=== PATIENT | male | born 1970 | race Two or more races ===

== ENCOUNTER 2019-05-12 13:03 | Emergency (ER) | payer SELFPAY ==
[~2019-05-12] VITALS: Ht 172.7 cm; Wt 77.1 kg
--- NOTE | 2019-05-12 13:11 | NUR ---
ED Nurse Note: pt brougth by RA [facility] from [place]. pt slept on other person's property, manager trading called LOKESH. when [employer] handcuff on him, pt c/o cp. LOKESH called 911. pt is not custody. pt appears to be ETOH. unkempt. on surveillance system monitor. will assess neuro after sober. will wait for the further order.
[2019-05-12 13:12] VITALS: BP 107/57
--- NOTE | 2019-05-12 14:45 | NUR ---
Nasir dolan in EDM - 05/12/19 at 1508 by YARIEL ED Nurse Note: PT TAKEN TO CT.
--- NOTE | 2019-05-12 14:45 | NUR ---
ED Nurse Note: PT IS NOW MORE AWAKE. RESPONDS TO QUESTIONS. VSS.
--- NOTE | 2019-05-12 14:45 | Emergency Room Report ---
History of Present Illness General Chief Complaint: Alcohol Intoxication Source: EMS Present Illness HPI This patient is brought in by [place] fire department. He is homeless and know alcoholic. They were called by a business van owner operator because the patient was sleeping on the property. When [place] police department arrived the patient refused to leave and then when he was being arrested he stated that he had chest pain. He has no complaints on my evaluation. He is sleeping and does not want to be bothered. Allergies: Coded Allergies: No Known Allergies (Unverified , 05/12/19) Patient History Past Medical History: none Social History: Reports: alcohol use Reviewed Nursing Documentation: PMH: Agreed; PSxH: Agreed Nursing Documentation-PMH Past Medical History Deferred: Pt Cognitively Impaired Past Medical History: Deferred Review of Systems All Other Systems: negative except mentioned in HPI Physical Exam Vital Signs Date Time Temp Pulse Resp B/P (MAP) Pulse Ox O2 Delivery O2 Flow Rate FiO2 05/12/19 12:57 97.5 80 16 110/80 (90) 98 Room Air Sp02 EP Interpretation: reviewed, normal General Appearance: no apparent distress, alert, GCS 15, non-toxic Head: normocephalic, atraumatic Eyes: bilateral eye normal inspection, bilateral eye PERRL ENT: hearing grossly normal, normal pharynx, no angioedema, normal voice Neck: full range of motion, supple/symm/no masses Respiratory: chest non-tender, lungs clear, normal breath sounds, no respiratory distress, no retraction, no accessory muscle use, speaking full sentences Cardiovascular #1: regular rate, rhythm, no edema Gastrointestinal: normal bowel sounds, non tender, soft, non-distended, no guarding, no rebound Rectal: deferred Musculoskeletal: back normal, gait/station normal, normal range of motion, non- tender Neurologic: alert, oriented x3, responsive, motor strength/tone normal, sensory intact, speech normal Psychiatric: judgement/insight normal, memory normal, mood/affect normal, no suicidal/homicidal ideation Medical Decision Making Medical: Alcohol Abuse Diagnostic Impression: Primary Impression: EtOH dependence ER Course This patient has known alcohol abuse. He had told the [place] fire department they had chest pain when he has been arrested. He had no complaints here in the emergency department. EKG was within normal limits. The patient was sleeping and did not want to be bothered. There is no evidence of emergent medical condition based on my examination. Patient is clinically sober at the time of discharge. EKG Diagnostic Results Rate: normal Rhythm: NSR ST Segments: no acute changes Rhythm Strip Diag. Results EP Interpretation: yes Rate: 70's Rhythm: NSR, no PVC's, no ectopy Last Vital Signs Date Time Temp Pulse Resp B/P (MAP) Pulse Ox O2 Delivery O2 Flow Rate FiO2 05/12/19 13:12 98.1 68 13 107/57 97 Room Air Disposition: HOME, SELF-CARE Condition: Improved Patient Instructions: Alcohol Abuse and Nutrition Gricel Ann DO May 12, 2019 14:45
--- NOTE | 2019-05-12 14:55 | NUR ---
Note kelsi in EDM - 05/12/19 at 1508 by YARIEL ED Nurse Note: PT BACK FROM CT. MORE AWAKE.
[2019-05-12 15:20] VITALS: BP 118/60
--- NOTE | 2019-05-12 15:20 | NUR ---
ER DISCHARGE NOTE: Patient is cleared to be discharged per ERMD, pt is aox4, on room air, with stable vital signs. pt was given dc instructions, pt was able to verbalize understanding, pt id band removed without complications. pt is able to ambulate with steady gait. pt took all belongings.
--- NOTE | 2019-05-13 21:46 | Cardiology Report ---
APPROVED REPORT EKG Measurement Heart [id number] Normal sinus rhythm Normal ECG
== END 2019-05-12 15:20 | disposition home or self-care (01) ==
LOC: EDBD 13:03 → EMR 14:00
DX: F10.10 Alcohol abuse, uncomplicated (principal); Z59.0 Homelessness
CPT/HCPCS: 93005; 99283